=== PATIENT | female | born 1995 | race African-American/Black ===

== ENCOUNTER 2023-02-12 11:07 | Emergency (ER) | payer BC, SELFPAY ==
[2023-02-12] VITALS (15 sets, daily range): BP systolic 102–129; BP diastolic 75–85; PULSE 78–101; RESP 12–34; TEMP 36.6–37.2; O2SAT 98–100
--- NOTE | ~2023-02-12 | XR_ITS ---
EXAMINATION: XR chest 2V DATE: 02/12/2023 11:43 INDICATION: Chest pain. TECHNIQUE: Frontal and lateral views of the chest were obtained. COMPARISON: None. FINDINGS: There is no pneumonia, pleural effusion, or pneumothorax. The heart size is normal. IMPRESSION: 1. No acute cardiopulmonary disease. Reviewed, dictated and finalized at location A. MAN
--- NOTE | 2023-02-12 11:09 | ECG_ITS ---
Measurements Intervals [place] Rate: 100 P: 49 [place]: 137 QRS: 52 QRSD: 70 T: 2 QT: 305 QTc: 394 Interpretive Statements SINUS TACHYCARDIA NONSPECIFIC T-WAVE ABNORMALITY ABNORMAL ECG NO PREVIOUS ECG AVAILABLE FOR COMPARISON Electronically Signed On 02-12-2023 12:51:09 [employer] by Larry Sanchez M.D.
[2023-02-12 11:34] LABS: Basophils Percent Auto 0.3 % (0.2-1.2); Eosinophils Absolute Auto 0.1 K/mm3 (0-0.3); Hematocrit 31.4 % (37.0-47.0); Hemoglobin 9.9 g/dL (12.0-15.0); Immature Granulocyte Absolute 0.03 K/mm3 (0.00-0.031); Immature Granulocyte Percent A 0.4 % (0-0.5); Lymphocytes Absolute Auto 1.45 K/mm3 (0.9-3.2); Lymphocytes Percent Auto 21.6 % (18.3-44.2); Mean Corpuscular HGB Conc 31.5 g/dl (32-36); Mean Corpuscular Hemoglobin 28.4 pg (26-34); Mean Platelet Volume 11.2 fl (7.4-10.4); Monocytes Absolute Auto 0.7 K/mm3 (0.1-0.6); Monocytes Percent Auto 9.7 % (2.6-8.5); Neutrophils Absolute Auto 4.5 K/mm3 (1.3-6.7); Platelet Count Result 259 k/mm3 (150-375); Red Blood Count 3.49 M/mm3 (4.2-5.4); Red Cell Distribution Width 13.6 % (11.5-14.5); White Blood Count 6.7 K/mm3 (4.5-10.0)
[2023-02-12 11:45] LABS: Alanine Aminotransferase 15 U/L (6-35); Albumin Level 3.8 g/dL (3.5-5.1); Alkaline Phosphatase 53 U/L (38-126); Anion Gap 7 mmol/L (8-16); Aspartate Amino Transferase 20 U/L (14-36); Bilirubin,Total 0.4 mg/dL (0.2-1.3); Blood Urea Nitrogen 7 mg/dL (7-17); Calcium 8.9 mg/dL (8.4-10.2); Carbon Dioxide 20 mmol/L (22-30); Chloride 105 mmol/L (98-107); Estimated CRCL calculation 139 ml/min; Estimated Glomerular Filt Rate > 60; Glucose 90 mg/dL (65-110); Lipase 80 U/L (23-300); Potassium 3.8 mmol/L (3.4-5.0); Prothrombin Time 13.2 Seconds (11.1-14.7); Sodium 132 mmol/L (137-145)
[2023-02-12 11:46] LABS: Partial Thromboplastin Time 31.8 SECONDS (22.3-36.8)
[2023-02-12 11:57] LABS: Troponin I < 0.012 ng/mL (0.000-0.034)
--- NOTE | 2023-02-12 13:09 | PC.NURSE ---
Application for voluntary admission document signed by pt & faxed to [facility] intake @ [phone]
[2023-02-12 13:36] LABS: D Dimer 0.47 ug/mL (<0.48)
[2023-02-12] MEDS: BELLADONNA ALK/PHENOB ELIX 10 ML, MAG HYDROX/ALUMINUM HYD/SIMETH 30 ML, LIDOCAINE HCL 2... PO (13:50)
--- NOTE | 2023-02-12 14:03 | ED.GENADULT ---
HPI - General Adult General Chief complaint: Chest Pain Stated complaint: 17 weeks , light headed, chest pain Time Seen by Provider: 02/12/23 12:46 History of Present Illness HPI narrative: patient is a 27-year-old female who presents ER with central chest discomfort. Began this morning. Sharp pain aching. Associated with mild dyspnea. Also reports poor taste in her mouth. No fevers or chills or sweats. No sinus congestion or sore throat or cough. No hemoptysis. No lower extremity swelling. Patient is 17 weeks in gestation. Related Data Allergies Allergy/AdvReac Type Severity Reaction Status Date / Time No Known Allergies Allergy Verified 02/12/23 11:34 Review of Systems Review of Systems: All systems reviewed & are unremarkable except as noted in HPI and below Constitutional: Constitutional: Reports no additional constitutional complaints Cardiovascular: Cardiovascular: Reports chest pain, Denies rapid heart rate and Denies radiating jaw, neck or arm pain Respiratory: Respiratory: Denies chest congestion, Denies cough, Reports dyspnea and Denies wheezing Gastrointestinal: Gastrointestinal: Reports no additional gastrointestinal complaints Genitourinary: Genitourinary: Reports no additional female genitourinary complaints Musculoskeletal: Musculoskeletal: Reports no additional musculoskeletal complaints PMFSH Past Medical History Medical History (Updated 02/12/23 @ 14:41 by Beny Wellington MD) Healthy female adult Surgical History Surgical History (Updated 02/12/23 @ 14:39 by Beny Wellington MD) No pertinent past surgical history Exam Narrative: GENERAL: Well-appearing, well-nourished, and in no acute distress. HEAD: Normocephalic, atraumatic. EYES: PERRL and EOMI. ENT: Mucous membranes moist. CHEST: Clear to auscultation. No respiratory distress. HEART: Regular rate and rhythm. Normal peripheral pulses. ABDOMEN: Soft, nontender, nondistended, uterus palpated just below the umbilicus. EXTREMITIES: Normal range of motion. No edema. SKIN: Warm, dry, no rash. NEURO: Alert and oriented x3. PSYCH: Normal mood and affect. Course Course Emergency Course: Patient resting comfortably. Informed of results. Appropriate for discharge home. Mild improvement with GI cocktail. D-dimer negative. Vital Signs Vital signs: Vital Signs Temperature 99 F 02/12/23 11:29 Pulse Rate 101 H 02/12/23 11:29 Respiratory Rate 17 02/12/23 11:29 Blood Pressure 119/83 02/12/23 11:29 Pulse Oximetry 100 02/12/23 11:29 Oxygen Delivery Room Air 02/12/23 11:29 Temperature 99 F 02/12/23 11:29 Pulse Rate 79 02/12/23 13:51 Respiratory Rate 18 02/12/23 13:51 Blood Pressure 107/75 02/12/23 13:51 Pulse Oximetry 100 02/12/23 13:52 Oxygen Delivery Room Air 02/12/23 13:52 Medical Decision Making Vital Signs Vital Signs: Vital Signs Temperature 99 F 02/12/23 11:29 Pulse Rate 101 H 02/12/23 11:29 Respiratory Rate 17 02/12/23 11:29 Blood Pressure 119/83 02/12/23 11:29 Pulse Oximetry 100 02/12/23 11:29 Oxygen Delivery Room Air 02/12/23 11:29 Temperature 99 F 02/12/23 11:29 Pulse Rate 79 02/12/23 13:51 Respiratory Rate 18 02/12/23 13:51 Blood Pressure 107/75 02/12/23 13:51 Pulse Oximetry 100 02/12/23 13:52 Oxygen Delivery Room Air 02/12/23 13:52 Lab Data 02/12/23 11:24 02/12/23 11:24 Labs: Lab Results 02/12/23 02/12/23 Range/Units 11:24 14:00 WBC 6.7 (4.5-10.0) K/mm3 RBC 3.49 L (4.2-5.4) M/mm3 Hgb 9.9 L (12.0-15.0) g/dL Hct 31.4 L (37.0-47.0) % MCV 90.0 (80-100) fl MCH 28.4 (26-34) pg MCHC 31.5 L (32-36) g/dl RDW 13.6 (11.5-14.5) % Plt Count 259 (150-375) k/mm3 MPV 11.2 H (7.4-10.4) fl Immature Gran % (Auto) 0.4 (0-0.5) % Neut % (Auto) 67.0 (45.5-73.1) % Lymph % (Auto) 21.6 (18.3-44.2) % [place] % (Auto) 9.7
[2023-02-12 14:33] LABS: Troponin I < 0.012 ng/mL (0.000-0.034)
== END 2023-02-12 15:05 | disposition home or self-care (01) ==
PROVIDERS: Emergency Provider Emergency Medicine
DX: O26.892 Other specified pregnancy related conditions, second trimester (principal); R07.89 Other chest pain; Z3A.17 17 weeks gestation of pregnancy
CPT/HCPCS: 36415; 71046; 80053; 83690; 84484; 85025; 85380; 85610; 85730; 93005; 99284; A9270